=== PATIENT | male | born 1960 | race Caucasian/White ===

== ENCOUNTER 2019-12-29 20:56 | Emergency (ER) | payer OTHER ==
[~2019-12-29] VITALS: Ht 170.2 cm; Wt 75.4 kg
[2019-12-29 21:14] VITALS: Ht 170.2 cm; Wt 75.4 kg
[2019-12-29 23:55] LABS: BASOPHIL % 0.5 % (0-2); PLATELET COUNT 207 x10^3mcL (130-400); RED CELL DISTRIBUTION WIDTH 13.2 % (11.5-14.5)
[2019-12-30 00:12] LABS: CALCIUM 8.5 mg/dL (8.5-10.1); CARBON DIOXIDE 22.7 mmol/L (21-32); CHLORIDE SERUM 106 mmol/L (98-107); CREATININE SERUM 0.9 mg/dL (0.7-1.3); GFR1 > 60 mL/min; GLUCOSE SERUM 117 mg/dL (74-106); POTASSIUM SERUM 3.4 mmol/L (3.5-5.1); SODIUM SERUM 140 mmol/L (136-145)
[2019-12-30 00:26] LABS: ALBUMIN 3.3 g/dL (3.4-5.0); ALKALINE PHOSPHATASE 36 U/L (46-116); ALT/SGPT 54 U/L (16-63); AST/SGOT 26 U/L (15-37); BILIRUBIN TOTAL 0.7 mg/dL (0.20-1.00); TOTAL PROTEIN, SERUM 6.3 g/dL (6.4-8.2)
[2019-12-30 00:42] VITALS: BP 152/90
== END 2019-12-30 00:42 | disposition home or self-care (01) ==
LOC: ED 20:56
DX: R10.813 Right lower quadrant abdominal tenderness (principal); R11.0 Nausea; E11.9 Type 2 diabetes mellitus without complications; Z87.19 Personal history of other diseases of the digestive system
CPT/HCPCS: J1885; J2405; J3010

== ENCOUNTER 2019-12-30 14:13 | Emergency (ER) | payer OTHER ==
[~2019-12-30] VITALS: Ht 170.2 cm; Wt 75.3 kg
[2019-12-30 14:50] VITALS: Ht 170.2 cm; Wt 75.3 kg
[2019-12-30 17:14] VITALS: BP 167/93
== END 2019-12-30 17:14 | disposition home or self-care (01) ==
LOC: ED 14:13
DX: R10.31 Right lower quadrant pain (principal); E11.9 Type 2 diabetes mellitus without complications; Z87.19 Personal history of other diseases of the digestive system